=== PATIENT | female | born 1950 | race Caucasian/White ===

== ENCOUNTER 2016-07-05 11:13 | Inpatient (IN) | payer MEDICARE, OTHER ==
--- NOTE | ~2016-07-05 | CR72 ---
[facility] A Service of [facility] RADIOLOGY TEXT RESULTS PATIENT: PRISCILA DAVIS LOCATION: A - : 51 UNIT #: [id number] AGE: [address]: Mushtaq Le MD SEX: F ORDER DR: [id number] [facility] [address] [facility]. [place], [place] [address] [id number] I MR#: [id number] Acc #: [id number] NAME: PRISCILA DAVIS. : 1950 SEX: F STUDY DATE/TIME: 07/06/2016 8:08 UNIT: [facility] ROOM: [facility] STUDY DESCRIPTION: CR Chest Single View Portable Attending Physician: Mushtaq Le M.D. Ordering Physician: Doris Carvajal D.O. Primary Care Physician: Thao Grayson Aprn MEDICAL IMAGING REPORT This report is preliminary unless electronic signature is present EXAM Portable AP view ofd the chest, 07/06/2016 COMPARISON July 05, 2016; January 15, 2010 and January 11, 2010. INDICATION 66-year-old female with dyspnea, cough and chest congestion for 3 days. History of hypertension and COPD. FINDINGS There is calcification of the aortic arch. Degenerative facet disease is noted in the lower cervical spine bilaterally, worse on the left. No evidence of pneumothorax. There is increased left basilar opacity reflecting atelectasis and/or pneumonia. Small left pleural effusion cannot be excluded. Interstitial prominence in the right lung appears stable going back to 2009. There is no current evidence of acute airspace disease on the right. Cardiomediastinal silhouette is within normal limits. IMPRESSION Increasing left basilar atelectasis versus pneumonia, possibly with associated small left pleural effusion. Normal heart size. Dictated by... Neil Hale M.D. THIS IS AN ELECTRONICALLY VERIFIED REPORT Neil Hale M.D. at 07/08/2016 4:18 PM SHAKILA/tristian [facility] A Service of [facility] RADIOLOGY TEXT RESULTS PATIENT: PRISCILA DAVIS LOCATION: [facility] 228-01 : 51 UNIT #: [id number] AGE: [address]: Mushtaq Le MD SEX: F ORDER DR: TD: 07/06/2016 21:20 JOB #: [id number] MEDICAL IMAGING REPORT Page 1 of 1 COPY
--- NOTE | ~2016-07-05 | CT72 ---
[facility] A Service [facility] RADIOLOGY TEXT RESULTS PATIENT: PRISCILA DAVIS LOCATION: [place] [address]-21 : 51 UNIT #: [id number] AGE: [address]: Mushtaq Le MD SEX: F ORDER DR: [id number] [place] [id number] [facility]. [place], [place] [address] [id number] I MR#: [id number] Acc #: [id number] NAME: PRISCILA DAVIS : 1950 SEX: F STUDY DATE/TIME: 07/15/2016 11:06 UNIT: [facility] ROOM: [facility] STUDY DESCRIPTION: CT Head Wo Contrast Stroke Attending Physician: Mushtaq Le M.D. Ordering Physician: Linda Espinal M.D. Primary Care Physician: Thao Grayson Aprn MEDICAL IMAGING REPORT This report is preliminary unless electronic signature is present EXAM CT of the brain without contrast media. HISTORY Left-sided paralysis, left-sided facial droop beginning at 08:00 this morning. TECHNIQUE Transaxial imaging of the brain was performed without contrast media. There are no previous head CTs for comparison. This CT exam was performed with one or more of the following radiation dose reduction techniques: automatic exposure control, adjustment of mA and/or kV according to patient size, and iterative reconstruction. FINDINGS Ventricular size and configuration is normal. There is subtle low attenuation identified in the right frontal cortex and white matter compared with the left side. There is no associated mass effect. There is no evidence of hemorrhage or edema. No intra or extraaxial fluid collections are seen. Bone windows are reviewed and appear unremarkable. CONCLUSION Subtle low attenuation in the right cerebral hemisphere involving the frontal region. This may represent an acute to subacute area of infarction. This could be further characterized by MR. CT of the brain appears otherwise negative. No evidence of mass effect and no evidence of intracranial hemorrhage. Dictated by... Tristan Lobato M.D. THIS IS AN ELECTRONICALLY VERIFIED REPORT [facility] A Service [facility] RADIOLOGY TEXT RESULTS PATIENT: PRISCILA DAVIS [address] : [birth year] UNIT #: [id number] AGE: [address]: Mushtaq Le MD SEX: F ORDER DR: Tristan Lobato M.D. at 07/17/2016 12:00 PM Preet TD: 07/15/2016 13:02 JOB #: [id number] MEDICAL IMAGING REPORT Page 1 of 1 COPY
--- NOTE | ~2016-07-05 | BMI ---
[facility] Nutrition Therapy DATE: 07/07/16 Patient: PRISCILA Michelle RYAN Physician: GOOD Address: [address] [place] [address] Room/Bed: [address] [place] [address], Zip: [place] [address] Admit Date: 07/05/16 Date of : 52 Height: 5 2 Weight: 250 113.39 HIGH BMI NOTE: DX: 66 Y.O. FEMALE ADMITTED FOR COPD ANTHROPOMETRICS: 5'2", WT: 250# (114 KG), BMI: 45.7 DIET: CC INTERVENTION: 1. CC DIET RECOMMENDATIONS: 1. RECOMMEND TO ADD HH TO CURRENT DIET ORDER ABOVE TO PROMOTE GRADUAL WEIGHT LOSS TOWARDS HEALTHY BMI (19.0-25.0) OR +/-10%IBW RD WILL F/U PER PROTOCOL Respectfully, DAVID AL MS, RD, LD [facility] cc: client file
--- NOTE | ~2016-07-05 | CO ---
Unit #: [id number] #: [id number] Patient: PRISCILA DON [id number] [address] [place], [place] [address] [id number] I MR#: [id number] NAME: PRISCILA DON ROOM: 228 Age: 66 Sex: F Admission Date: 07/05/2016 : 1950 Attending Physician: Mushtaq Le M.D. Primary Care Physician: Thao Grayson, Pablo Consultation Date: 07/14/2016 CONSULTATION REPORT REASON FOR CONSULTATION Positive HIV test. HISTORY OF PRESENT ILLNESS Priscila Don is a 66-year-old white female with a history of diabetes, chronic obstructive pulmonary disease and anxiety. She was admitted with chronic obstructive pulmonary disease exacerbation on the and was treated for chronic obstructive pulmonary disease exacerbation with steroids and empiric antibiotic therapy. For some reason HIV test was sent on this patient, although this was not meant to be sent on this particular patient, which showed positive B24 antigen. When the pulmonary service was notified about this, another test was sent yesterday, which also showed positive B24 antigen. However, antibody was negative. I discussed this in detail with (1) , the pathologist. She is not sure if the patient is HIV positive, but B24 antigen assay is very sensitive. The lab has sent final testing to [facility], which will not be available for now. I was asked to see her for further evaluation. The patient denies any risk factors for HIV, except that she had a blood transfusion 34 years ago. She says that she is shocked to find that she is HIV positive, but she does not really look shocked to me. She is wide awake and alert and looks very comfortable. She has no symptoms of any active or opportunistic infection. At this time she told me that she has never been tested for HIV. She has had a monogamous relationship with her and has not had any sex for the last 10 years. She has never used any IV drugs, but she did receive blood transfusion 34 years ago. PAST MEDICAL HISTORY 1. Chronic obstructive pulmonary disease with frequent exacerbations. 2. Morbid obesity. 3. Hypertension. 4. Obstructive sleep apnea. 5. Depression. 6. Hyperlipidemia. 7. Hypothyroidism. 8. Cervical cancer. PAST SURGICAL HISTORY 1. Colonoscopy. 2. Right knee arthroplasty. SOCIAL HISTORY The patient is and lives with her . She quit smoking seven years ago. No history of IV drug use or any other drug use. No history of recent travel, alcohol, etc. Unit #: [id number] #: [id number] Patient: PRISCILA DON FAMILY HISTORY Unremarkable. ALLERGIES No known drug allergies. CURRENT MEDICATIONS 1. Protonix. 2. Proventil. 3. Spiriva. 4. Symbicort. 5. Synthroid. 6. Lipitor. 7. Effexor. 8. Solu-Medrol. 9. Antivert. 10. Zestril. 11. NovoLog. 12. Ceftriaxone. 13. Zithromax. REVIEW OF SYSTEMS Shortness of breath which is much better now. She has minimum cough. No sputum production. No chest pain, abdominal pain, headache, mental status changes, skin rash, weight loss, thrush, nausea, vomiting or diarrhea. PHYSICAL EXAMINATION GENERAL: Middle-aged obese white female who is awake and alert, sitting up, on nasal cannula oxygen. She does not appear to be in any distress. She looks fine with normal mental status. Morbid obesity was noted. VITALS: Temperature 98.1, heart rate 68, respiratory rate 18, blood pressure 150/75. HEENT: She is taylor faced. No thrush. NECK: Supple. Jugular venous distension was flat. LUNGS: Scattered rhonchi, consistent with chronic obstructive pulmonary disease. HEART: Heart sounds are muffled, but normal. ABDOMEN: Obese, soft and nontender. No rebound or guarding. Bowel sounds normal. NEUROLOGIC: Nonfocal. DIAGNOSTIC STUDIES IMAGING: Chest x-ray shows hyperinflated lung hummel, consistent with chronic obstructive pulmonary disease. Atelectasis right lung base. No obvious consolidation was noted. LABORATORY: HIV antibody is negative. However, B24 antigen is reactive. Confirmative test is in progress at [facility]. Sodium 134, potassium 4.8, chloride 98, CO2 27, glucose 322, BUN 24, creatinine 1. ASSESSMENT Positive HIV antigen test with negative antibody, with confirmation pending. B24 antigen testing is very sensitive and it is not clear if the patient actually has HIV or not. This was discussed in detail with the patient. She was told that she does not have any confirmatory diagnosis and will have to wait for the final test from [facility]. In the meantime, will send some other testing, including HIV viral load, genotyping, CD4 Unit #: [id number] #: [id number] Patient: PRISCILA DON count, hepatitis serology, CMV and toxoplasma IgG. Will ask for social service to make arrangements for the patient's followup [facility] to follow up on the outcome of test and to initiate therapy if she is indeed positive. The patient was again reminded that this test is not final and confirmation needs to be done and we need to wait on the final testing. Dictated by... Dee Dee Owens TD: 07/14/2016 16:00 JOB #: [id number] CONSULTATION REPORT Page 1 of 1 X Jese Stuart MD X CONSULTATION REPORT
--- NOTE | ~2016-07-05 | CT18 ---
[facility] A Service of [facility] RADIOLOGY TEXT RESULTS PATIENT: PRISCILA DAVIS LOCATION: [place] [address]21 : 51 UNIT #: [id number] AGE: [address]: Mushtaq Le MD SEX: F ORDER DR: [id number] [facility] [address] [facility]. [place], [place] [address] [id number] I MR#: [id number] Acc #: [id number] NAME: PRISCILA DAVIS : 1950 SEX: F STUDY DATE/TIME: 07/15/2016 11:13 UNIT: [facility] ROOM: [facility] STUDY DESCRIPTION: CT Angio Head Stroke Attending Physician: Mushtaq Le M.D. Ordering Physician: Linda Espinal M.D. Primary Care Physician: Thao Grayson Aprn MEDICAL IMAGING REPORT This report is preliminary unless electronic signature is present EXAM CT scan of the head and neck with contrast with carotid CT angiography HISTORY Left sided paralysis with facial drooping beginning this morning. TECHNIQUE Thin section imaging was obtained through the mid mediastinum to the top of the head with contrast. 80 mL of Isovue was used. CT angiography was performed with thick sliding MIPS, curved planar reformats and 3-D volumetric imaging with surface shading and volume shaded display. This CT exam was performed with one or more of the following radiation dose reduction techniques: automatic control, adjustment of mA and/or kV according to patient size, and iterative reconstruction. FINDINGS Extravascular structures are unremarkable. The CT angiographic study shows patency of the great vessels off of the arch with mild plaque seen but no significant great vessel origin stenosis. In the posterior circulation both vertebral arteries are patent with the left being more dominant than the right. The distal vertebrals are patent and the basilar artery is widely patent. In the carotid circulation, the right internal carotid artery is occluded at its origin. There is calcified plaque at the left internal carotid origin. Maximum stenosis by NASCET criteria is 60%. The left cervical internal carotid is patent up through the siphon. There is moderate siphon plaque without severe siphon stenosis. In the intracranial circulation, the left A1 segment is patent but is of STS. [facility] A Service of [facility] RADIOLOGY TEXT RESULTS PATIENT: PRISCILA DAVIS LOCATION: [facility] CICCU3-21 : 51 UNIT #: [id number] AGE: [address]: Mushtaq Le MD SEX: F ORDER DR: small caliber and both anterior cerebral arteries fill from the left. The right M1 segment occludes abruptly 1 cm from its origin and is occluded over a length of about 2 cm. This is consistent with distal embolization. There is collateral refilling of sylvian fissure branches on the right. There is no evidence of aneurysm or vascular malformation. No other occluded segments are seen. IMPRESSION 1. Occluded right M1 segment over a length of 2 cm consistent with acute embolization. 2. Small caliber left A1 segment. 3. Dominant left vertebral artery. 4. Occluded right internal carotid at its origin with significant stenosis of 60% at the left internal carotid origin. STAT * RESULT Dictated by... Dre Brewer M.D. THIS IS AN ELECTRONICALLY VERIFIED REPORT Dre Brewer M.D. at 07/15/2016 6:47 PM JONELLE/ryann TD: 07/15/2016 13:41 JOB #: [id number] MEDICAL IMAGING REPORT Page 1 of 1 COPY
--- NOTE | ~2016-07-05 | US85 ---
[facility] A Service of [facility] RADIOLOGY TEXT RESULTS PATIENT: PRISCILA DAVIS LOCATION: A 228-01 : 51 UNIT #: [id number] AGE: [address]: Mushtaq Le MD SEX: F ORDER DR: [id number] [facility] [address] [place], [place] [address] [id number] I MR#: [id number] Acc #: [id number] NAME: PRISCILA DAVIS. : 1950 SEX: F STUDY DATE/TIME: 07/05/2016 18:01 UNIT: [facility] ROOM: [facility] STUDY DESCRIPTION: LE Veins Unilat or Ltd Stdy Attending Physician: Mushtaq Le M.D. Ordering Physician: Doris Carvajal D.O. Primary Care Physician: Thao Grayson Aprn MEDICAL IMAGING REPORT This report is preliminary unless electronic signature is present EXAM Left lower extremity venous ultrasound. HISTORY Chronic left leg pain for 5 years. Shortness of air for 4 days. TECHNIQUE Venous ultrasound examination of the left lower extremity was performed using grayscale, spectral Doppler and color flow Doppler imaging. FINDINGS The examination is negative. There is no evidence of left lower extremity deep venous thrombus from the groin to the lower calf. Visualized greater saphenous vein is also patent. IMPRESSION Negative examination. No evidence of left lower extremity deep venous thrombosis. Dictated by... Kwadwo Smith M.D. THIS IS AN ELECTRONICALLY VERIFIED REPORT Kwadwo Smith M.D. at 07/06/2016 5:15 PM DFL/rene TD: 07/06/2016 10:22 JOB #: [id number] MEDICAL IMAGING REPORT Page 1 of 1 COPY
--- NOTE | ~2016-07-05 | DS ---
Unit #: [id number] #: [id number] Patient: PRISCILA DAVIS [id number] [address] [place], [place] [address] [id number] I MR#: [id number] NAME: PRISCILA DAVIS ROOM: [facility] Age: 66 Sex: F Admission Date: 07/05/2016 : 1950 Discharge Date: 07/15/2016 Attending Physician: Mushtaq Le M.D. Primary Care Physician: Thao Grayson, Supply Chain Project Manager DISCHARGE SUMMARY DIAGNOSES 1. Acute right-sided CVA with left hemiparesis. 2. Chronic obstructive pulmonary disease exacerbation. 3. Probable obstructive sleep apnea. 4. Diabetes. 5. Hypertension. 6. HIV positivity. 7. Morbid obesity. 8. Hemoptysis times one, resolved. 9. Hypothyroidism on replacement. 10. Lingular airspace disease consistent with pneumonia on CT scan. HOSPITAL COURSE The patient is a 66-year-old white female, previously admitted by the HIPS department, but admitted by Dr. Carvajal of pulmonary this time. She has a history of chronic obstructive pulmonary disease, morbid obesity, hypertension, diabetes, depression, dyslipidemia. Hypothyroidism and history of cervical cancer. She was admitted with increasing shortness of breath with fever. She was felt to have exacerbation of chronic obstructive pulmonary disease. Original chest x-ray showed some chronic lung disease bilaterally with some increase in lower lobe infiltrate compared to previous x-rays. Left lower extremity venous Doppler study was negative for DVT. Follow-up chest x-ray the next day revealed increasing left basilar atelectasis versus pneumonia. Subsequent CT scan was done with contrast, which showed focal airspace disease in the lingula, consistent with atelectasis and/or pneumonia. There was diffuse emphysema throughout. Her lactic acid level was 1.3. Her BMP was normal. She was treated with inhaled bronchodilators, IV Solu-Medrol, covered with antibiotics in the form of Rocephin and Zithromax. She was placed on DVT prophylaxis. She was covered with sliding scale insulin for her diabetes on steroids. She had slow improvement and was being readied for discharge and her steroids were being weaned. Her blood sugars were still elevated. There was blood drawn on her by mistake for an HIV for another patient. It returned positive for antigen, negative for antibody. A repeat sample was done after her consent was given and she was informed of the mistake. It once again returned positive for antigen. It is being sent to [facility] to be confirmed. She was seen in consultation by Dr. Stuart, infectious disease, who has ordered HIV viral load, HIV genotype, CD4 cell count, hepatitis A, B and C serology, CMV, IgG and a toxoplasma IgG. She was to be scheduled for the [address] [place] [address] for HIV management in one week. This morning she was a bit more congested. Her blood sugars were elevated. She was changed from Symbicort and Spiriva to nebulized duo-neb and Pulmicort/Perforomist. After that she was found to have acute left-sided weakness with left facial droop and code stroke was called. She was seen Unit #: [id number] #: [id number] Patient: PRISCILA DAVIS by Dr. Espinal and found to have an acute right-sided CVA with near complete occlusion of the right carotid. She is arranged transfer to [place] for possible intervention and treatment. She will need to follow up in my office with regard to her chronic obstructive pulmonary disease. She most certainly has obstructive sleep apnea. This will need to be evaluated and treated with CPAP. Apparently she is on nocturnal oxygen only. DISCHARGE MEDICATIONS 1. Duo-Nebs q.4 h. 2. Pulmicort/Perforomist nebs q.12 h. 3. Solu-Medrol 40 mg V q.12. h. 4. Tylenol 650 mg q.4 h. p.r.n. fever. 5. Lovenox 40 subcutaneous daily. 6. Effexor 150 mg daily. 7. Meclizine 25 mg t.i.d. p.r.n. 8. Lipitor 40 mg daily. 9. Lisinopril 40 mg each morning. 10. Sliding scale insulin per protocol. 11. Protonix 40 mg p.o. b.i.d. 12. Hypertonic saline nebs q.12 h. 13. Synthroid 88 mcg daily. 14. Ceftin 1 g IV daily. 15. Zithromax 500 mg daily. Probably for one more day. 16. Continue on supplemental oxygen. Dictated by... Ko Rose M.D. Claudia TD: 07/15/2016 13:44 JOB #: [id number] CC: Dee Dee Schroeder M.D. Ajmal H. Bangash, M.D. Tariq Mehmood, M.D. DISCHARGE SUMMARY Page 1 of 1 X Ko Rose MD X DISCHARGE SUMMARY
--- NOTE | ~2016-07-05 | CR63 ---
[facility] A Service of [facility] RADIOLOGY TEXT RESULTS PATIENT: PRISCILA DAVIS LOCATION: [place] CICCU07-01 : 51 UNIT #: [id number] AGE: [address]: Mushtaq Le MD SEX: F ORDER DR: [id number] [facility] [address] [facility] [place], [place] [address] [id number] I MR#: [id number] Acc #: [id number] NAME: PRISCILA DAVIS : 1950 SEX: F STUDY DATE/TIME: 07/12/2016 20:23 UNIT: C2A ROOM: 228 STUDY DESCRIPTION: CR Chest 2 View Attending Physician: Mushtaq Le M.D. Ordering Physician: Mushtaq Le M.D. Primary Care Physician: Thao Grayson Aprn MEDICAL IMAGING REPORT This report is preliminary unless electronic signature is present EXAM Two-views chest, 07/12/2016. HISTORY Hemoptysis. TECHNIQUE AP radiograph of chest presented. COMPARISON STUDIES 07/06/2016, 0808 hours. FINDINGS Bones appear somewhat hyperinflated. Correlate with any known underlying chronic airway disease. Linear atelectasis at the right lung base has developed in the interval from the prior study. Lungs are otherwise clear without evidence of acute inflammatory or infectious disease. No dense airspace consolidation, pleural effusion, or pneumothorax. No suspicious nodule. Visualized upper abdomen unremarkable. Heart normal in size. Bony structures show no acute abnormality. Dictated by... Tristan Galan M.D. THIS IS AN ELECTRONICALLY VERIFIED REPORT Tristan Galan M.D. at 07/15/2016 6:09 PM KAVITHA/rene TD: 07/13/2016 15:20 JOB #: [id number] [facility] A Service [facility] RADIOLOGY TEXT RESULTS PATIENT: PRISCILA DAVIS LOCATION: [place] [facility]ON[place]3 : 51 UNIT #: [id number] AGE: [address]: Mushtaq Le MD SEX: F ORDER DR: MEDICAL IMAGING REPORT Page 1 of 1 COPY
--- NOTE | ~2016-07-05 | CR72 ---
[facility] A Service of [facility] RADIOLOGY TEXT RESULTS PATIENT: PRISCILA DAVIS LOCATION: [facility] : 52 UNIT #: [id number] AGE: [address]: Mushtaq Le MD SEX: F ORDER DR: [id number] [facility] [address] [facility] [place], [place] [address] [id number] I MR#: [id number] Acc #: [id number] NAME: PRISCILA DAVIS. : 1950 SEX: F STUDY DATE/TIME: 07/05/2016 11:16 UNIT: [facility] ROOM: [facility] STUDY DESCRIPTION: CR Chest Single View Portable Attending Physician: Mushtaq eL M.D. Ordering Physician: Rloy Kinsey D.O. Primary Care Physician: Thao Grayson Aprn MEDICAL IMAGING REPORT This report is preliminary unless electronic signature is present EXAM Portable chest. DATE OF EXAM 07/05/2016 HISTORY Shortness breath for the past 3 days. TECHNIQUE Single view chest was obtained and compared with 01/15/2010. FINDINGS The heart and mediastinum are stable. In the lungs, interstitial markings are diffusely prominent on both sides but unchanged. Aeration at both costophrenic angles has improved since the previous exam. No pleural fluid is seen and the vascular pattern is normal. IMPRESSION Chronic interstitial lung disease bilaterally. The lower lung field infiltrates show slight worsening since the previous examination but this is all felt to be chronic. A superimposed acute lower lung field pneumonitis is not completely excluded, but is felt to be less likely. The upper lung hummel are clear. No evidence of congestive heart failure. Dictated by... Dre Brewer M.D. THIS IS AN ELECTRONICALLY VERIFIED REPORT Dre Brewer M.D. at 07/08/2016 9:46 AM RLF/robby [facility] A Service of [facility] RADIOLOGY TEXT RESULTS PATIENT: PRISCILA DAVIS LOCATION: [facility] : 52 UNIT #: [id number] AGE: [address]: Mushtaq Le MD SEX: F ORDER DR: TD: 07/05/2016 22:36 JOB #: [id number] MEDICAL IMAGING REPORT Page 1 of 1 COPY
--- NOTE | ~2016-07-05 | CT16 ---
[facility] A Service of [facility] RADIOLOGY TEXT RESULTS PATIENT: PRISCILA DAVIS LOCATION: [facility] 228- : 51 UNIT #: [id number] AGE: [address]: Mushtaq Le MD SEX: F ORDER DR: [id number] [facility] [address] [place], [place] [address] [id number] MR#: [id number] Acc #: [id number] NAME: PRISCILA DAVIS. : 1950 SEX: F STUDY DATE/TIME: 07/06/2016 17:10 UNIT: [facility] ROOM: 228 STUDY DESCRIPTION: CT Angio Chest for PE Attending Physician: Mushtaq Le M.D. Ordering Physician: Mushtaq Le M.D. Primary Care Physician: Thao Grayson Aprn MEDICAL IMAGING REPORT This report is preliminary unless electronic signature is present EXAM CT portable chest, PE protocol. HISTORY Hypoxia, shortness of air, onset Thursday five days ago, chronic obstructive pulmonary disease, morbid obesity. TECHNIQUE Axial images were performed through the chest following IV contrast. 3-D coronal and sagittal reconstructed images were reviewed at the work station. This CT exam was performed with one or more of the following radiation dose reduction techniques: automatic exposure control, adjustment of mA and/or kV according to patient size, and iterative reconstruction. FINDINGS Underlying pulmonary parenchymal changes compatible with emphysema. Focal airspace disease noted inferior lingular segment could represent atelectasis or early pneumonia. Bibasilar atelectasis. No effusions. Trachea and bronchi are unremarkable. Normal enhancement of the pulmonary arteries. No evidence of embolus. Aorta free of dissection. There is mild aortic atherosclerotic changes. Heart size within normal limits. Upper abdomen unremarkable. Osseous structures thoracic inlet appear normal. IMPRESSION 1. Focal airspace disease lingular segment may represent atelectasis or early pneumonia. There is also a small amount of bibasilar atelectasis. This is superimposed on diffuse emphysema. 2. No evidence of pulmonary embolus. [facility] A Service of [facility] RADIOLOGY TEXT RESULTS PATIENT: PRISCILA DVAIS LOCATION: [facility] 228- : 51 UNIT #: [id number] AGE: [address]: Mushtaq Le MD SEX: F ORDER DR: Dictated by... Yessica Dobbs M.D. THIS IS AN ELECTRONICALLY VERIFIED REPORT Yessica Dobbs M.D. at 07/07/2016 10:05 AM ISABELL/gloria TD: 07/07/2016 08:47 JOB #: [id number] MEDICAL IMAGING REPORT Page 1 of 1 COPY
--- NOTE | ~2016-07-05 | CT24 ---
[facility] A Service of [facility] RADIOLOGY TEXT RESULTS PATIENT: PRISCILA DAVIS LOCATION: [place] [address]-21 : 51 UNIT #: [id number] AGE: [address]: Mushtaq Le MD SEX: F ORDER DR: [id number] [place] [address] [place], [place] [address] [id number] I MR#: [id number] Acc #: [id number] NAME: PRISCILA DAVIS : 1950 SEX: F STUDY DATE/TIME: 07/15/2016 UNIT: [facility] ROOM: [facility] STUDY DESCRIPTION: CT Angio Neck Stroke Attending Physician: Mushtaq Le M.D. Ordering Physician: Linda Espinal M.D. Primary Care Physician: Thao Grayson Aprn MEDICAL IMAGING REPORT This report is preliminary unless electronic signature is present EXAM CTA neck Please see CTA head for results. Dictated by... Dre Brewer M.D. THIS IS AN ELECTRONICALLY VERIFIED REPORT Dre Brewer M.D. at 07/15/2016 6:48 PM RLF/ryann TD: 07/15/2016 13:50 JOB #: [id number] MEDICAL IMAGING REPORT Page 1 of 1 COPY
--- NOTE | ~2016-07-05 | EKG ---
PATIENT: PRISCILA DAVIS UNIT #: [id number] Ventricular Rate: 97 BPM Atrial Rate: 97 BPM P-R Interval: 146 ms QRS Duration: 80 ms Q-T Interval: 360 ms QTC Calculation(Bezet): 457 ms P [place]: 75 degrees Calculated R [place]: -5 degrees Calculated T [place]: 67 degrees Diagnosis Line: Normal sinus rhythm Diagnosis Line: Low voltage QRS Diagnosis Line: Otherwise normal ECG Diagnosis Line: When compared with ECG of 24-MAR-2015 00:31, Diagnosis Line: Nonspecific T wave abnormality, improved in Diagnosis Line: Anterior leads Diagnosis Line: Confirmed by GLEN CORREA MD ([id number]) on 07/07/2016 Diagnosis Line: 10:53:50 PM INTERPRETING MD: SUNNY CULLEN
--- NOTE | ~2016-07-05 | CO ---
Unit #: [id number] #: [id number] Patient: PRISCILA DAVIS [id number] [facility] [address] [place], [place] [address] [id number] MR#: [id number] NAME: PRISCILA DAVIS ROOM: [facility] Age: 66 Sex: F Admission Date: 07/05/2016 : 1950 Attending Physician: Mushtaq Le M.D. Primary Care Physician: Thao Grayson Aprn Consultation Date: 07/15/2016 CONSULTATION REPORT CONSULTING PHYSICIAN Code stroke protocol. PATIENT IDENTIFICATION This is a 66-year-old right-handed female evaluated initially on 2A and then in CT scanner and then she was evaluated in her new room, ICU 21, at [facility]. SOURCE OF INFORMATION Obtained from the patient, discussion with Dr. Rose, the patient's attending, and also review of the medical record, and discussion with nursing staff caring for the patient. HISTORY OF PRESENT ILLNESS This is a 66-year-old right-handed female with a past medical history of hypertension, morbid obesity, COPD, obstructive sleep apnea, depression, cervical cancer, hyperlipidemia, who presented to [facility] with complaints of shortness of air and was admitted for acute on chronic respiratory failure/insufficiency secondary to acute exacerbation of COPD most likely from continued secondhand smoke exposure. The patient was treated for that as well as obstructive sleep apnea and HIV positivity. She was also treated for lingular airspace disease consistent with pneumonia on CT scan. Please see discharge summary per Dr. Rose on July 15, 2016. The patient was apparently in her usual state of health this morning when she was evaluated by the nurse on her 8 a.m. rounds. She was alert and oriented, moving all extremities with no focal neurologic changes noted. The nurse states that even after her 8 a.m. assessment she was eating breakfast and doing well, though she is uncertain of the time. Thus, her last definitive known well was documented as 8 a.m., though likely it was beyond that. I do not know what time she actually received her breakfast. When the nurse was doing her rounds around 10:45, she noticed that the patient was not moving her left side which was a new findings. Thus, rapid response was called. The house calls nurse practitioner responded and called a code stroke out of concern for new-onset stroke given her symptoms. A blood glucose was checked. Initially, we had an Accu-Chek in the 160s and then repeat blood glucose evaluation was 199. The patient that morning had had an elevated blood glucose in the 200 or 300s and had received her usual dose of insulin. Dr. Espinal and I both responded to the code stroke immediately and saw the patient at 10:56. The patient had focal neurologic deficit on the left side, hemiparesis, some neglect and sensory loss, and facial droop as well. She did show some improvement in the CT scan but still had a measurable neurologic deficit. Thus, Dr. Espinal decided to treat the patient with Alteplase. Her last known well was possibly outside the Unit #: [id number] #: [id number] Patient: PRISCILA DAVIS three hour window but was definitively not outside the four and a half hour window. The patient consented and was able to consent herself verbally and discussed with myself as well as Dr. Espinal. I reviewed inclusion/exclusion criteria with the patient in detail and also with Dr. Espinal. The patient did have an episode in the past of hemoptysis but is currently not actively having any issues. She has had no other active bleeding and has had no signs of active bleeding. Otherwise, the rest of inclusion/exclusion criteria was reviewed with the patient and reviewed in her medical record. Her daughter did state that she has a history of stroke but is uncertain of whether she has any actual deficits. She states that she is independent otherwise and was told by her primary care physician that she had had a stroke in the past and "didn't know it." The patient about 30 minutes after code stroke activation received IV Alteplase given that she had no contraindications and she continued to have a focal measurable neurologic deficit that was reported as new with her last known well within the four and a half window and patient consented. She was not fully oriented as she had difficulty with the month, stating it was June, but otherwise she was fully oriented and appropriate and able to provide history. We also spoke with her over the phone and her daughter upon arrival regarding her condition. The patient had a head CT done as part of the acute code stroke protocol. Dr. Espinal reviewed imaging and made the decision for Alteplase. Upon his review, there is a subtle low attenuation in the right cerebral hemisphere involving the frontal region but no evidence of large or farhat hypodensity and no evidence of hemorrhage. The patient was sent to the ICU after Alteplase was started in the CT scan with Dr. Espinal present. The patient had EKG done that showed normal sinus rhythm. The patient was admitted to the ICU, started on IV fluids, and lab work was pending after being obtained in the CT scan. The patient was not on any therapeutic Lovenox, had not received Lovenox since July 12, was not on any anticoagulation otherwise and not showing any signs of active bleeding or any recent surgery. Again, inclusion/exclusion criteria was reviewed with the patient. CT angiogram of the head and neck was done as well emergently while in CT scan and it does show an occluded right M1 segment over a length of 2 cm consistent with acute embolization and small caliber left A1 segment, an occluded right internal carotid at its origin, and significant stenosis of 60% at the left internal carotid origin. Dr. Espinal discussed with Dr. Erendira Nicholson, stroke neurologist at [facility], implementation consultant for the stroke team and the decision was made that the patient needed to be transferred to [facility] for CT perfusion and possible intervention as she was still within the window. I spoke with Dr. Nicholson via the [facility] and arrangements were made for [facility] to call ICU nurse back for urgent arrangements. Of note, at the time of initial code stroke, the patient had NIH of 9. PAST MEDICAL HISTORY 1. Hypertension. 2. Morbid obesity. 3. COPD. 4. Obstructive sleep apnea. 5. Depression. 6. Hyperlipidemia. 7. Hypothyroidism. 8. Cervical cancer. 9. Possible history of stroke per family, details unknown. 10. Colonoscopy for cervical cancer. 11. Right knee arthroplasty. Unit #: [id number] #: [id number] Patient: PRISCILA ADVIS FAMILY HISTORY Noncontributory given the presenting condition and current condition. SOCIAL HISTORY The patient quit smoking about seven years ago but continues to have secondhand smoke exposure from her . She is a greater than a 40 pack year history. Denies alcohol use or abuse or illicit drug use. She is and lives with her and cares for a 7-month-old during the day. ALLERGIES No known drug allergies. HOME MEDICATIONS 1. Prilosec. 2. Lisinopril. 3. Atorvastatin. 4. Levothyroxine. HOSPITAL MEDICATIONS Were reviewed at the time of decision making and discussed with Dr. Espinal. REVIEW OF SYSTEMS A 14-point review of systems was attempted. Pertinent positives are as discussed above, otherwise negative. PHYSICAL EXAMINATION VITAL SIGNS: Temperature 97.2. She has been afebrile. Pulse 72, respirations 16, blood pressure 105/45 was her last documented pressure prior to the code stroke. At the time of code stroke, she had a blood pressure of 147/66. Oxygen saturation 100% on 3 L and a pulse of 96. Height 5 feet 2 inches, weight 249 pounds. NEUROLOGIC: At time of evaluation, the patient is awake. She is alert and oriented to person and place. She can tell me the year but continues to tell me it is June. She can tell me her age appropriately and her date of appropriately. She can provide past medical history appropriately and answer questions. Upon reviewing her NIH, she had initial NIH score of 9. She has mild facial palsy, minor paralysis, initially found to have significant left arm motor impairment with no effort versus gravity and some effort versus gravity with her left leg. She had significant sensory loss. No aphasia. She had some extinction and attention. CRANIAL NERVE EXAM: She appeared to demonstrate full hummel of vision in response to primary and peripheral visual threats. Eyes did appear to be conjugate with no obvious gaze palsy seen (1) . Extraocular movements appear to be intact upon repeated evaluation. Sensation was impaired. Strength of muscles of facial expression did reveal mild flattening of the nasolabial fold on the left side. Hearing is intact to voice. Tongue was questionably midline. Unable to fully visualize uvula and palate. Head turning is unremarkable. Shoulder shrug unremarkable on the right. MOTOR EXAM: As discussed above. SENSORY EXAM: As discussed above. GAIT: Gait and Romberg deferred. COORDINATON: Unable to assess on the left given her weakness. Otherwise none seen. Unit #: [id number] #: [id number] Patient: PRISCILA DAVIS DIAGNOSTIC STUDIES LABORATORY: CRP less than 0.5. Cholesterol 181, triglycerides 86, LDL 77, HDL 87. Current CMP shows sodium 132, potassium 3.4, chloride 97, CO2 of 26, glucose 201, BUN 32, creatinine 1, estimated GFR 59.1, calcium 8.4. AST 14, ALT 29, alkaline phosphatase 59, total protein 6.9, albumin 3.6. CK total 65. PT 9.6, INR 0.9, PTT 20.8. Troponin less than 0.03. White blood cell count 14.7, hemoglobin 13.6, hematocrit 42.7, platelet count 310,000. Point of care glucose 199. IMAGING: CT of the head without contrast: Please see above. Please see full dictated radiology report. CT angiogram of the head and neck: Please see above. Please see full dictated radiology report. Other labs and diagnostic studies are as per chart and have been reviewed. CARDIOVASCULAR: EKG as discussed above. IMPRESSION 1. Acute right hemispheric ischemic stroke with right M1 occlusion and right internal carotid artery occlusion, questionable thromboembolic. 2. Hypertension, stable. 3. Acute exacerbation of chronic obstructive pulmonary disease. 4. Hypothyroidism. 5. Hyperlipidemia with LDL of 77. 6. Positive HIV test. 7. Leukocytosis. 8. Diabetes mellitus type 2. 9. Hypokalemia. PLAN Again as discussed above in detail and as per note, decision made per Dr. Espinal for Alteplase and was given at 11:26 and he discussed with Dr. Erendira Nicholson, stroke neurologist, implementation consultant for [facility] stroke team and decision has been made to send the patient to [facility] and that was put into process quickly thereafter. I spoke with Dr. Nicholson personally via [facility] for the patient to go to the emergency department for CT perfusion and would be admitted as an intensive care unit patient. We discussed with the patient's via the telephone and with the daughter at the bedside and updated them on the plan. The patient received Alteplase outside the three hour window but well within the four and a half hour window and consent was obtained from the patient in detail verbally via Dr. Espinal and myself and inclusion/exclusion criteria reviewed. Dr. Espinal also discussed with Dr. Rose the attending physician. Please see his discharge summary. Again, Dr. Espinal present for all decision making and evaluation of the patient at time of the code stroke. Please call for any questions or issues. We thank you very much for allowing us to assist in the care of this patient. Critical care decision making time was from 10:56 hours to 11:26 hours. Dictated by... Thao Soto A.P.R.N. Unit #: [id number] #: [id number] Patient: PRISCILA DAVIS Viviana REN/berta TD: 07/15/2016 15:38 JOB #: [id number] CONSULTATION REPORT Page 1 of 1 X Thao Soto APRN X CONSULTATION REPORT
--- NOTE | ~2016-07-05 | HP ---
Unit #: [id number] #: [id number] Patient: PRISCILA DAVIS [id number] [address] [place], [place] [address] [id number] MR#: [id number] NAME: PRISCILA DAVIS ROOM: Age: 66 Sex: F Admission Date: 07/05/2016 : 1950 Attending Physician: Roly Kinsey D.O. Primary Care Physician: Thao Grayson Aprn HISTORY AND PHYSICAL REASON FOR ADMISSION Shortness of breath, hypoxemic respiratory insufficiency. HISTORY OF PRESENT ILLNESS This is a 66-year-old morbidly obese female who states she normally sees Dr. Vaca for COPD and obstructive sleep apnea but she states she only treats her sleep apnea with oxygen. She denies being on any inhalers. Three days ago she started developing shortness of breath. She had a chronic cough which was unchanged. She states she did have some fever, chills but never checked her temp. She had no nausea, vomiting or diarrhea. She lives with her who does smoke. She is not sure how much weight she has gained since she last saw Dr. Vaca. She has no history of diabetes, coronary artery disease but her does state she had in the past a stroke. She has been having difficulty walking lately. She has complained that her left foot hurts and is swelling. She has been immobile except for in her home. She does watch a [id number]-uds but states they have not been sick. PAST MEDICAL HISTORY Hypertension, morbid obesity, COPD, obstructive sleep apnea, depression, dyslipidemia, hypothyroidism, cervical cancer. PAST SURGICAL HISTORY She has had a colonoscopy for cervical cancer and right knee arthroplasty. SOCIAL HISTORY The patient quit smoking about seven years ago but continues to have secondhand exposure from her . She had greater than a 40-pack year history. She denies any alcohol or illicit drug use. She takes care of a vmwiw-zvhiv-laq during most of the day. She has had no recent travel history. She did have the flu or the pneumonia vaccine. She has never been exposed to or known anyone with TB. FAMILY HISTORY Unremarkable. ALLERGIES None. MEDICATIONS Currently, she is on: 1. Prilosec. 2. Lisinopril. 3. Atorvastatin. Unit #: [id number] #: [id number] Patient: PRISCILA DAVIS 4. Levothyroxine. REVIEW OF SYSTEMS Complete review of systems was performed. Pertinent positives are included in the chief complaint. PHYSICAL EXAMINATION VITAL SIGNS: Currently are stable. She is sating 96% on six liters. HEENT: Eyes: PERRLA. Extraocular movements intact. Sclerae clear. Nose patent and symmetrical. Throat without erythema or exudate. Tongue size normal. NECK: Without JVD, carotid bruit or thyromegaly. LYMPH NODES: Without submandibular, anterior, cervical, supraclavicular adenopathy. HEART: Regular. There is no thrill palpated. There is no murmur appreciated. LUNGS: Markedly diminished with some faint expiratory wheezing throughout. There is dullness to percussion. There is no egophony. ABDOMEN: Morbidly obese, unable to appreciate hepatosplenomegaly. EXTREMITIES: Without clubbing, cyanosis. There is some mild edema to the left foot and some mild increased fullness to the left ankle. DIAGNOSTIC STUDIES LABORATORY: Studies reviewed. IMAGING: Chest x-ray was compared to a chest x-ray from over five years ago and does not appear to have any significant changes. IMPRESSION 1. Acute on chronic hypoxemic respiratory insufficiency secondary to acute exacerbation of COPD most likely from continued secondhand smoke exposure, however, cannot rule out pneumonia with elevated white count and clinical picture of fever, chills. 2. Morbid obesity. Question whether she has sleep apnea and/or obesity hypoventilation syndrome. 3. Hypertension. 4. GERD. 5. Hypothyroidism. 6. Dyslipidemia. 7. Depression. 8. Increased swelling of the left foot with history of immobility. RECOMMENDATIONS 1. Empiric antibiotics, steroids, bronchodilators. 2. Check ABGs now and in a.m. 3. Check nocturnal O2 sating. 4. Proton pump inhibitor. 5. GERD precaution. 6. Left lower extremity venous Doppler. 7. Will follow. Dictated by Carlo Grissom/lavon Unit #: [id number] #: [id number] Patient: PRISCILA DAVIS TD: 07/05/2016 15:00 JOB #: [id number] HISTORY AND PHYSICAL Page 1 of 1 X Doris Carvajal HISTORY AND PHYSICAL
--- NOTE | ~2016-07-05 | EKG ---
PATIENT: PRISCILA DAVIS UNIT #: [id number] Ventricular Rate: 70 BPM Atrial Rate: 70 BPM P-R Interval: 130 ms QRS Duration: 92 ms Q-T Interval: 418 ms QTC Calculation(Bezet): 451 ms P [place]: 80 degrees Calculated R [place]: 33 degrees Calculated T [place]: 69 degrees Diagnosis Line: Normal sinus rhythm Diagnosis Line: Poor R wave progression questionable lead position Diagnosis Line: or body habitus Diagnosis Line: Abnormal ECG Diagnosis Line: Diagnosis Line: Confirmed by SAMMI HERNANDEZ MD ([id number]) on 07/15/2016 Diagnosis Line: 11:38:32 PM INTERPRETING MD: MARY CULLEN
[~2016-07-05 11:13] MED LIST: ACCUPRIL PO; ALBUTEROL MININEB; AMOX TR-K CLV 81 TA1 PO; ATORVASTATIN CA40 MG PO; BLOOD PRESSURE PILL; CIPRO PO; CIPRO250 MG PO; COMBIVENT U/D3 M1 INH; EFFEXOR PO; EFFEXOR75 M1 PO; EFFEXOR75 MG PO; FLAGYL PO; FLEXERIL10 MG PO; HCTZ PO; K-DUR10 MEQ PO; LASIX20 MG PO; LEVAQUIN PO; LORAZEPAM0.5 MG PO; MELOXICAM15 MG PO; METRONIDAZOLE PO; MOBIC PO; PERCOCET5/325 PO; PHENERGAN PO; PREDNISONE1 MG PO; PRINIVIL40 MG PO; PROTONIX PO; SYMBICORT 160/4.6 G1 INH; SYNTHROID75 MCG PO; TRIAMTERENE-HC1 EACH PO; WELLBUTRIN100 MG PO; ZESTRIL40 MG PO
[2016-07-05 11:55] LABS: BASOPHIL% 0.3 % (0-2.5); EOSINOPHIL# 0.1 X10e3 (0-0.7); EOSINOPHIL% 0.5 % (0.0-7.0); HEMATOCRIT 40.5 % (35.0-45.0); HEMOGLOBIN 13.2 gm/dL (12.0-16.0); LYMPHOCYTE# 0.6 X10e3 (1.0-3.5); LYMPHOCYTE% 5.1 % (17.0-45.0); MEAN CELL VOLUME 86.3 FL (83-96); MEAN CORPUSCULAR HGB CONC 32.5 g/dL (30-36); MEAN PLATELET VOLUME 8.3 FL (6.5-11.5); MONOCYTE# 0.4 X10e3 (0-1.0); MONOCYTE% 3.1 % (3.0-12.0); NEUTROPHIL# 11.4 X10e3 (1.5-7.1); PLATELET COUNT 198 X10e3 (140-420); RED CELL DISTRIBUTION WIDTH 14.9 % (11.0-15.5); WHITE BLOOD COUNT 12.5 X10e3 (4.0-10.5)
[2016-07-05 12:05] LABS: DIFF IND NO
[2016-07-05 12:09] LABS: INFLUENZA A NEG (NEG); INFLUENZA B NEG (NEG)
[2016-07-05 12:11] LABS: INR 0.9; PARTIAL THROMBOPLASTIN TIME 25.9 SECONDS (23.5-31.3); PROTHROMBIN TIME (PATIENT) 9.9 SECONDS (9.6-11.5)
[2016-07-05 12:21] LABS: ALBUMIN SERUM 3.7 g/dL (3.5-5.0); BILIRUBIN, DIRECT 0.1 mg/dL (0.0-0.2); BILIRUBIN,INDIRECT 0.3 mg/dL (0.0-0.9); BILIRUBIN,TOTAL 0.4 mg/dL (0.2-2.0); BUN/CREATININE RATIO 15.55; CALCIUM SERUM 8.3 mg/dL (8.4-10.2); CREATININE SERUM 0.9 mg/dL (0.6-1.4); GLOM FILT RATE Estimated 67.1 mL/min (>60); POTASSIUM 4.4 mmol/L (3.5-5.1); PROTEIN TOTAL SERUM 7.4 g/dL (6.0-8.3)
[2016-07-05 12:24] LABS: POC - CKMB 1.3 ng/mL (0.0-7.9); POC - TROPONIN <0.05 ng/mL (<=0.05)
[2016-07-05 13:42] LABS: POC - CKMB 1.7 ng/mL (0.0-7.9); POC - TROPONIN <0.05 ng/mL (<=0.05)
[2016-07-05] MEDS ORDERED: LEVOTHYROXINE88 MCG PO (15:57)
[2016-07-05] MEDS ORDERED: LIPITOR40 MG PO (15:58)
[2016-07-05] MEDS ORDERED: EFFEXOR75 M3 PO (15:58)
[2016-07-05] MEDS ORDERED: PANTOPRAZOLE SO40 MG PO (16:00)
[2016-07-05] MEDS ORDERED: LISINOPRIL20 MG PO (16:00)
[2016-07-05] MEDS ORDERED: EFFEXOR75 MG PO (16:02)
[2016-07-05 16:08] LABS: ARTERIAL BLD GAS O2 SATURATION 95.9 % (90.0-100.0); ARTERIAL BLOOD GAS CARBOXY HB 0.4 %sat (0.0-9.0); ARTERIAL BLOOD GAS HCO3 22.3 mmol/L; ARTERIAL BLOOD GAS MET HB 0.8 %sat (0.0-2.0); ARTERIAL BLOOD GAS PCO2 40.7 mmHg (35.0-45.0); ARTERIAL BLOOD GAS pH 7.348 (7.350-7.450)
[2016-07-05 16:09] LABS: ARTERIAL BLOOD GAS ALLEN TEST NORMAL; ARTERIAL BLOOD GAS ART SITE LEFT RADIAL; ARTERIAL BLOOD GAS DELIVERY NASAL CANNULA; ARTERIAL DRAW? YES
[2016-07-06 04:10] LABS: ARTERIAL BLOOD GAS HCO3 27.4 mmol/L; ARTERIAL BLOOD GAS PCO2 44.3 mmHg (35.0-45.0); ARTERIAL BLOOD GAS PO2 59.8 mmHg (80.0-100)
[2016-07-06 04:11] LABS: ARTERIAL BLD GAS O2 SATURATION 90.6 % (90.0-100.0); ARTERIAL BLOOD GAS ALLEN TEST NORMAL; ARTERIAL BLOOD GAS ART SITE RIGHT RADIAL; ARTERIAL BLOOD GAS CARBOXY HB 0.6 %sat (0.0-9.0); ARTERIAL BLOOD GAS DELIVERY NASAL CANNULA; ARTERIAL BLOOD GAS MET HB 0.7 %sat (0.0-2.0); ARTERIAL DRAW? YES
[2016-07-06 05:28] LABS: BASOPHIL% 0.3 % (0-2.5); HEMATOCRIT 42.7 % (35.0-45.0); HEMOGLOBIN 13.8 gm/dL (12.0-16.0); LYMPHOCYTE# 0.9 X10e3 (1.0-3.5); LYMPHOCYTE% 6.9 % (17.0-45.0); MEAN CELL VOLUME 87.3 FL (83-96); MEAN CORPUSCULAR HEMOGLOBIN 28.1 PG (28-34); MEAN CORPUSCULAR HGB CONC 32.2 g/dL (30-36); MEAN PLATELET VOLUME 8.5 FL (6.5-11.5); MONOCYTE# 0.3 X10e3 (0-1.0); MONOCYTE% 2.3 % (3.0-12.0); NEUTROPHIL# 11.4 X10e3 (1.5-7.1); NEUTROPHIL% 90.5 % (40-75); PLATELET COUNT 203 X10e3 (140-420); RED BLOOD COUNT 4.89 X10e (3.90-5.30); RED CELL DISTRIBUTION WIDTH 14.9 % (11.0-15.5); WHITE BLOOD COUNT 12.6 X10e3 (4.0-10.5)
[2016-07-06 05:34] LABS: DIFF IND NO
[2016-07-07 05:24] LABS: HEMATOCRIT 38.9 % (35.0-45.0); HEMOGLOBIN 12.6 gm/dL (12.0-16.0); MEAN CELL VOLUME 86.7 FL (83-96); MEAN CORPUSCULAR HEMOGLOBIN 28.1 PG (28-34); MEAN CORPUSCULAR HGB CONC 32.4 g/dL (30-36); MEAN PLATELET VOLUME 9.2 FL (6.5-11.5); RED BLOOD COUNT 4.48 X10e (3.90-5.30); WHITE BLOOD COUNT 18.5 X10e3 (4.0-10.5)
[2016-07-07 06:10] LABS: CALCIUM SERUM 8.6 mg/dL (8.4-10.2); GLOM FILT RATE Estimated 59.1 mL/min (>60); POTASSIUM 4.7 mmol/L (3.5-5.1)
[2016-07-12 06:32] LABS: HEMATOCRIT 42.1 % (35.0-45.0); HEMOGLOBIN 13.5 gm/dL (12.0-16.0); MEAN CELL VOLUME 87.4 FL (83-96); MEAN PLATELET VOLUME 9.3 FL (6.5-11.5); RED BLOOD COUNT 4.82 X10e (3.90-5.30); RED CELL DISTRIBUTION WIDTH 14.8 % (11.0-15.5); WHITE BLOOD COUNT 9.6 X10e3 (4.0-10.5)
[2016-07-12 07:04] LABS: BUN/CREATININE RATIO 24.44; CALCIUM SERUM 8.5 mg/dL (8.4-10.2); CREATININE SERUM 0.9 mg/dL (0.6-1.4); GLOM FILT RATE Estimated 67.1 mL/min (>60)
[2016-07-13 06:05] LABS: BASOPHIL% 0.2 % (0-2.5); EOSINOPHIL% 0.1 % (0.0-7.0); HEMATOCRIT 45.3 % (35.0-45.0); HEMOGLOBIN 14.4 gm/dL (12.0-16.0); LYMPHOCYTE# 0.8 X10e3 (1.0-3.5); LYMPHOCYTE% 7.2 % (17.0-45.0); MEAN CORPUSCULAR HEMOGLOBIN 27.9 PG (28-34); MEAN CORPUSCULAR HGB CONC 31.7 g/dL (30-36); MEAN PLATELET VOLUME 9.3 FL (6.5-11.5); MONOCYTE# 0.7 X10e3 (0-1.0); MONOCYTE% 6.6 % (3.0-12.0); NEUTROPHIL# 9.1 X10e3 (1.5-7.1); NEUTROPHIL% 85.9 % (40-75); PLATELET COUNT 309 X10e3 (140-420); RED BLOOD COUNT 5.14 X10e (3.90-5.30); RED CELL DISTRIBUTION WIDTH 14.4 % (11.0-15.5); WHITE BLOOD COUNT 10.6 X10e3 (4.0-10.5)
[2016-07-13 06:07] LABS: DIFF IND NO
[2016-07-13 06:24] LABS: INR 0.9; PARTIAL THROMBOPLASTIN TIME 22.4 SECONDS (23.5-31.3); PROTHROMBIN TIME (PATIENT) 9.8 SECONDS (9.6-11.5)
[2016-07-14 08:22] LABS: CALCIUM SERUM 8.9 mg/dL (8.4-10.2); GLOM FILT RATE Estimated 59.1 mL/min (>60); POTASSIUM 4.8 mmol/L (3.5-5.1)
[2016-07-15 12:01] LABS: BASOPHIL% 0.1 % (0-2.5); EOSINOPHIL# 0.1 X10e3 (0-0.7); EOSINOPHIL% 0.8 % (0.0-7.0); HEMATOCRIT 42.7 % (35.0-45.0); HEMOGLOBIN 13.6 gm/dL (12.0-16.0); LYMPHOCYTE# 2.4 X10e3 (1.0-3.5); LYMPHOCYTE% 16.4 % (17.0-45.0); MEAN CELL VOLUME 87.6 FL (83-96); MEAN CORPUSCULAR HGB CONC 31.9 g/dL (30-36); MEAN PLATELET VOLUME 8.9 FL (6.5-11.5); MONOCYTE# 1.5 X10e3 (0-1.0); MONOCYTE% 10.3 % (3.0-12.0); NEUTROPHIL# 10.6 X10e3 (1.5-7.1); NEUTROPHIL% 72.4 % (40-75); PLATELET COUNT 310 X10e3 (140-420); RED BLOOD COUNT 4.87 X10e (3.90-5.30); RED CELL DISTRIBUTION WIDTH 14.7 % (11.0-15.5); WHITE BLOOD COUNT 14.7 X10e3 (4.0-10.5)
[2016-07-15 12:02] LABS: DIFF IND NO
[2016-07-15 12:12] LABS: ALBUMIN SERUM 3.6 g/dL (3.5-5.0); BILIRUBIN,TOTAL 0.8 mg/dL (0.2-2.0); CALCIUM SERUM 8.4 mg/dL (8.4-10.2); GLOM FILT RATE Estimated 59.1 mL/min (>60); INR 0.9; POTASSIUM 3.4 mmol/L (3.5-5.1); PROTEIN TOTAL SERUM 6.9 g/dL (6.0-8.3); PROTHROMBIN TIME (PATIENT) 9.6 SECONDS (9.6-11.5)
[2016-07-15 12:13] LABS: PARTIAL THROMBOPLASTIN TIME 20.8 SECONDS (23.5-31.3)
[2016-07-15 12:46] LABS: %MB 5.8 % (0.0-4.0); MB 3.8 ng/ml
[2016-07-15 13:13] LABS: CHOLESTEROL 181 mg/dL (0-200); HDL CHOLESTEROL 87 mg/dL (35-95); LDL CHOLESTEROL 77 mg/dL ([, -130]); LDL/HDL RATIO 1 RATIO (0-4); TRIGLYCERIDES 86 mg/dL (10-160)
[2016-07-17 16:19] LABS: HA AB IGM (HEPPAN) Nonreactive (()); HB CORE AB IGM (HEPPAN) Nonreactive (Nonreactive); HB S AG (HEPPAN) Nonreactive (Nonreactive); HEP C AB (HEPPAN) Nonreactive (Nonreactive); HEP C AB SIGNAL TO CUTOFF 0.01 ratio (<1.00)
[2016-07-17 18:34] LABS: CD4 % (PNL) 38 % (30-61); HIV1 LOG COPIES/ML <1.30 (<1.30); HIV1COPIES/ML <20 (<20); TOXOPLASMA IGG ANTIBODY <=0.90 (<=0.90)
== END 2016-07-15 13:45 | disposition short-term general hospital (02) | DRG 189 ==
LOC: CED 11:13 → CEDOF 14:25 → C2A 20:42 → CICCU3 07-15 11:38
PROVIDERS: Emergency Medicine; Internal Medicine; Internal Medicine Pulmonary Disease; Nurse Practitioner
PROC: B32TYZZ Computerized Tomography (CT Scan) of Left Pulmonary Artery using Other Contrast (ICD-10-PCS; 2016-07-06)
PROC: B32SYZZ Computerized Tomography (CT Scan) of Right Pulmonary Artery using Other Contrast (ICD-10-PCS; 2016-07-06)
PROC: 3E04317 Introduction of Other Thrombolytic into Central Vein, Percutaneous Approach (ICD-10-PCS; principal; 2016-07-15)
PROC: B32GYZZ Computerized Tomography (CT Scan) of Bilateral Vertebral Arteries using Other Contrast (ICD-10-PCS; 2016-07-15)
DX: J96.21 Acute and chronic respiratory failure with hypoxia (principal); I63.131 Cerebral infarction due to embolism of right carotid artery; G81.91 Hemiplegia, unspecified affecting right dominant side; I10 Essential (primary) hypertension; E09.9 Drug or chemical induced diabetes mellitus without complications; D72.829 Elevated white blood cell count, unspecified; I63.231 Cerebral infarction due to unspecified occlusion or stenosis of right carotid arteries; J44.1 Chronic obstructive pulmonary disease with (acute) exacerbation; R04.2 Hemoptysis; Z77.22 Contact with and (suspected) exposure to environmental tobacco smoke (acute) (chronic); E66.01 Morbid (severe) obesity due to excess calories; K21.9 Gastro-esophageal reflux disease without esophagitis; E03.9 Hypothyroidism, unspecified; E78.5 Hyperlipidemia, unspecified; F32.9 Major depressive disorder, single episode, unspecified; G47.33 Obstructive sleep apnea (adult) (pediatric); Z87.891 Personal history of nicotine dependence; R29.709 NIHSS score 9; T38.0X5A Adverse effect of glucocorticoids and synthetic analogues, initial encounter; E87.6 Hypokalemia; Z96.651 Presence of right artificial knee joint; R42 Dizziness and giddiness
CPT/HCPCS: 36415; 36600; 70450; 70496; 70498; 71010; 71020; 71275; 80048; 80053; 80061; 80074; 80076; 82550; 82553; 82803; 82947; 83036; 83605; 83735; 83880; 84443; 84484; 85025; 85027; 85610; 85730; 86140; 86361; 86644; 86701; 86702; 86705; 86707; 86708; 86777; 86803; 86850; 86900; 86901; 87340; 87350; 87536; 87804; 87806; 87901; 93005; 93971; 94640; 94664; 94760; 94762; 96365; 96366; 97110; 97116; 97162; 97166; 97530; 99285; G8978-GP; G8979-GP; G8987-GO; G8988-GO; J0456; J0696; J1650; J1815; J2920; J2997; Q9967